=== PATIENT | female | born 1945 | race African-American/Black ===

== ENCOUNTER 2023-02-14 01:11 | Emergency (ER) | payer MEDICARE ==
[~2023-02-14] VITALS: Ht 165.1 cm; Wt 59.0 kg
[2023-02-14 01:16] VITALS: O2SAT 98
[2023-02-14] MEDS ORDERED: ACET-2708 MT (03:49)
[2023-02-14 04:30] VITALS: BP 145/70; PULSE 65; RESP 18; TEMP 97.7
== END 2023-02-14 04:40 | disposition home or self-care (01) ==
LOC: ER 01:11
DX: M25.532 Pain in left wrist (principal); M25.531 Pain in right wrist; M25.561 Pain in right knee; R51.9 Headache, unspecified; W01.0XXA Fall on same level from slipping, tripping and stumbling without subsequent striking against object, initial encounter; Y93.89 Activity, other specified; Y92.89 Other specified places as the place of occurrence of the external cause; Y99.8 Other external cause status
CPT/HCPCS: 73100; 73502; 73562; 93005; 99284

== ENCOUNTER 2023-05-18 12:56 | Emergency (ER) | payer MEDICARE, OTHER ==
[~2023-05-18] VITALS: Ht 172.7 cm; Wt 68.0 kg
[~2023-05-18 12:56] MED LIST: ACET-2708 MT
[2023-05-18 13:06] VITALS: O2SAT 98
[2023-05-18 14:18] LABS: BASOPHILS % 0.4 % (0.0-2.0); EOSINOPHILS % 0.4 % (0.0-5.0); HEMATOCRIT. 38.1 % (36.0-48.0); HEMOGLOBIN. 12.7 g/dL (12.0-16.0); LYMPHOCYTES % 9.6 % (20.0-50.0); MEAN CORPUSCULAR HEMOGLOBIN 31.1 pg (28.0-32.0); MEAN CORPUSCULAR HGB CONC 33.3 g/dL (31.0-37.0); MEAN CORPUSCULAR VOLUME 93.5 fL (81.0-99.0); MEAN PLATELET VOLUME 8.6 fl (7.4-10.4); MONOCYTES % 7.5 % (2.0-8.0); NEUTROPHILS % 82.1 % (40.0-76.0); PLATELET 215 x1000/uL (130-400); RED BLOOD CELL COUNT 4.07 mill/uL (4.2-5.4); RED CELL DISTRIBUTION WIDTH 14.8 % (11.6-14.6); WHITE BLOOD COUNT 6.9 x1000/uL (4.5-11.0)
[2023-05-18 14:36] LABS: ALANINE AMINOTRANSFERASE 10 IU/L (10-49); ALBUMIN 4.3 g/dL (3.2-4.8); ASPARTATE AMINOTRANSFERASE 25 IU/L (<34); BILIRUBIN TOTAL 0.4 mg/dL (0.1-1.0); CARBON DIOXIDE 29 mEq/L (21-32); CHLORIDE 105 mEq/L (98-107); CREATININE 0.9 mg/dL (0.6-1.0); GLUCOSE 108 mg/dL (70-105); POTASSIUM 3.6 mEq/L (3.5-5.1); PROTEIN TOTAL 7.8 g/dL (6.0-8.3); SODIUM 140 mEq/L (136-145); TROPONIN I HIGH SENSITIVITY 4 ng/L (3.0-34); UREA NITROGEN BLOOD 13 mg/dL (9-23)
[2023-05-18 14:44] LABS: PROTHROMBIN TIME 10.9 sec (9.6-11.0)
[2023-05-18] MEDS ORDERED: ONDA4TAB11 PO (17:24)
[2023-05-18] MEDS ORDERED: AMOX1TAB16 MT (17:24)
[2023-05-18 17:49] VITALS: BP 146/87; PULSE 82; RESP 16; TEMP 98.7
== END 2023-05-18 18:01 | disposition home or self-care (01) ==
LOC: ER 12:56
DX: K57.32 Diverticulitis of large intestine without perforation or abscess without bleeding (principal); I10 Essential (primary) hypertension
CPT/HCPCS: 36415; 71045; 74176; 80053; 84484; 85025; 93005; 99285